=== PATIENT | male | born 1955 | race Caucasian/White ===

== ENCOUNTER 2022-07-21 15:43 | Outpatient (CLI) | payer OTHER ==
--- NOTE | 2022-07-21 16:49 | Sleep Patient Instructions ---
Sleep Center Visit Summary - Patient Visit Information Reason for Visit: Initial consult to establish care for PAP therapy - Patient Instructions Additional Instructions: You will continue with CPAP therapy with pressure set at 15-17 cmH2O. A supply prescription will be updated with your DME. I added updating to a new CPAP because of your old CPAP having issues. Please call us to set compliance visit after you obtain new CPAP. We encourage you to continue to try to lose weight. Please follow up with the sleep care office one month after obtaining new device. - Clinic Information Contact: [facility] [address] [place] [address] [email or web address] T: [phone]
--- NOTE | 2022-07-21 16:58 | SLEEP CARE CONSULTATION ---
Information from patient questionnaire entered by Magali Constantino. I have reviewed and concur with the information entered by Magali Constantino. This document represents the service I personally performed and the decisions made by me, Julissa Botello ARNP. History of Present Illness Service Date and Time: 07/21/2022 1543 Reason for Visit: New patient, Previously diagnosed sleep apnea, sleep apnea on CPAP therapy Chief Complaint: reports: Other (UPDATE SUPPLIES) Usual bedtime: 1030PM Time it takes to fall asleep: 2-3MIN Snores at night: Yes Observed to quit breathing while asleep: Yes Sleeps alone due to snoring: No Number of times waking at night: 0-1 Reasons for waking at night: reports: Bathroom Toss, Turn, or Twitch while sleeping: No Recalls having dreams: Yes Usually gets out of bed at: 630AM Feels refreshed in the morning: Yes Morning headache: No Sleepy or fatigued during the day: Yes Ever fallen asleep while driving: No Takes day naps: No Dreams during day naps: No Prior sleep studies: Yes Year and Where: 2018 [facility] Additional HPI information: VERÓNICA POPE was previsously diagnosed to have mild, AHI 10, obstructive sleep apnea-hypopnea syndrome as seen in sleep study in 2018 through [facility] and comes in today to establish care for CPAP therapy. - Parasomnia Symptoms Ever been unable to move upon waking from sleep: No Walks in sleep: No Talks in sleep: No Ever acted out dreams in sleep: Yes Ever felt weak in the knees when startled or emotional: No Bothered by creepy, crawly, restless sensations in legs: No Problems with memory or concentration: Yes CPAP Compliance Data - Data Reviewed with Patient Average duration of nightly device use: 7 hours 1 minute Compliance rate %: 100 (30/30 days used) Current pressure setting (cmH2O): 12-16 Average residual AHI: 7.0 Average large leak: 26 mins 52 secs Compliance data discussion: He is using [employer] for his supplies. He has a Dreamstation that is re-certified. He is using a Resmed hybrid full face mask, F30. Subjective Patient concerns: reports: mask leak noise. denies: aerophagia, mask discomfort, air blowing in eyes, condensation in mask/hose, nasal congestion, dry mouth, nose, throat, epistaxis Observed to snore while using device: No Current pressure setting perceived as: too low On therapy, patient: reports: sleeping better, awakening more refreshed, being more awake and alert during the day, more rested overall. 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 Patient is and lives in [place]. Have you smoked in the past 12 months: No Alcohol use: No Caffeine use: Yes Caffeine amount and frequency: 20 OZ DAILY Family History Family history of sleep disordered breathing: Yes Family Hx Sleep Apnea: Mother: Snoring, Father: Snoring, Sibling: Snoring, Sleep apnea - Treated Allergies and Home Medications Known drug allergies: No Drug allergies reviewed: Yes Home medication list reviewed: Yes (see updated list in EMR) Review of Systems Weight gain over past 5 years: 10 Cardiovascular: denies: high blood pressure Respiratory: denies: shortness of breath Gastrointestinal: denies: heartburn Neurological: denies: headaches Psychiatric: reports: anxiety. denies: depression Ear/Nose/Throat: denies: tonsillectomy Endocrine: denies: thyroid disease Immunologic: reports: allergies to food or environment (spring time hayfever) Physical Exam Vital signs obtained and entered by: MAGALI Bhatt MA Blood Pressure: 106/60 (LEFT ARM) Cuff size: regular Heart Rate: 66 O2 Saturation: 96 Height: 6 ft 1 in Weight: 198 lb 3.2 oz Body Mass Index: 26.1 BMI Classification: Overweight Neck circumference: 15.25 Heart: regular rate and rhythm Lungs: clear bilaterally (heart monitor in place on left chest) Impression and Plan 1. Obstructive Sleep Apnea-Hypopnea Syndrome, mild, with good treatment compliance and fair apnea control with mild elevation of residual AHI. On CPAP therapy, the patient has better sleep quality and is more rested overall. The patients pressure will be changed to autoCPAP 15-17 cmH20 for elevation of residual AHI. Patient advised to contact me if pressure change is uncomfortable so that it can be adjusted. Goals for apnea control discussed. He has a Dreamstation that was replaced with a certified part. But, he states it is leaking water every night. He thinks he is due to for a new device. The patients CPAP may be over 5 years old and is of reasonable use. In addition, it is leaking from the machine, a sign of malfunction. Thus, the CPAP will be updated. A DWO prescription will be made. Compliance guidelines for new device and follow up discussed. Patient's apnea severity and rationale for treatment to reduce apnea, improve sleep quality and reduce cardiovascular and cerebrovascular events was reviewed. I also reviewed the benefit of consistent device use of CPAP for hypertension, cardiac disease, and anxiety. 2. Overweight, unspecified. Currently patients BMI is 26.1. Obesity increases the risk of apnea, CPAP pressure requirements and overall health risks especially cardiovascular and diabetes. Thus patient is advised to lose weight. * Change auto CPAP pressure to 15-17 cmH2O * Update machine * Update supplies * Notify me if snoring with mask or feeling that the pressure is too much or too little * Attempt to lose weight * Call this office if any problems using CPAP * Return for follow up one month after obtaining new device, or sooner if concerns arise Counseling Topics: Spare mask, Weight loss health impact Prescriptions: Auto CPAP, Device supplies Visit Type: In Office Time Spent with Patient (minutes): 32 Provider Statement: I spent 100% of the Face to Face Visit with the patient with greater than 50% spent counseling the patient and coordination of care.
[2022-07-22 07:43] VITALS: BP 106/60
== END 2022-07-21 15:44 ==
LOC: SC 15:43
PROVIDERS: ATTEND Nurse Practitioner Family
DX: G47.33 Obstructive sleep apnea (adult) (pediatric) (principal); E66.3 Overweight; Z68.26 Body mass index [BMI] 26.0-26.9, adult
CPT/HCPCS: 99203; 99212